=== PATIENT | male | born 1955 | race Caucasian/White ===

== ENCOUNTER 2018-04-02 12:18 | Observation (INO) ==
[2018-04-02] MEDS ORDERED: Aspirin 81 MG TAB.CHEW PO ONE (12:36)
[2018-04-02] MEDS ORDERED: Nitroglycerin 0.4 MG TAB.SUBL SL ONE (12:36)
[2018-04-02 12:44] LABS: Basophils # 0.1 K/mcL (0.0-0.2); Basophils % 0.8 %; Eosinophils # 0.2 K/mcL (0.0-0.6); Hematocrit 50.1 % (37.5-50.1); Hemoglobin 17.7 g/dL (12.9-16.9); Lymphocytes # 2.7 K/mcL (0.6-4.6); Lymphocytes % 23.8 %; Mean Corpuscular HGB Conc 35.3 g/dL (31.6-35.5); Mean Corpuscular Hemoglobin 30.3 pg (28.0-33.3); Mean Corpuscular Volume 85.8 fL (83.0-100.0); Mean Platelet Volume 10.6 fL (9.4-12.4); Monocytes # 0.9 K/mcL (0.0-1.3); Monocytes % 8.1 %; Neutrophils # 7.2 K/mcL (1.6-8.9); Platelet Count 179 K/mcL (140-400); Red Blood Count 5.84 M/mcL (4.19-5.50); Red Cell Distribution Width 11.9 % (11.5-14.5); Segmented Neutrophils % 64.3 %
[2018-04-02 12:54] LABS: Prothrombin Time 11.5 Seconds (9.4-12.1)
[2018-04-02 12:57] LABS: Activated Partial Thrombo Time 25.8 Seconds (26.0-36.0)
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
[2018-04-02 13:09] LABS: Calcium 9.5 mg/dL (8.6-10.3); Potassium 3.6 mEq/L (3.5-5.1); Troponin I 0.03 ng/mL (< 0.04)
[2018-04-02] MEDS ORDERED: 0.9 % Sodium Chloride 1,000 ML IVC ONE (14:02)
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
[2018-04-02] MEDS ORDERED: Naloxone 0.4 MG/ML INJ IVP PRN (15:39)
[2018-04-02] MEDS ORDERED: OLMESARTAN MEDOXOMIL 20 MG PO SCH (16:45)
[2018-04-02] MEDS: amLODIPine 5 MG TABLET PO SCH (17:26)
[2018-04-02 23:06] LABS: Adenovirus Not Detected (Not Detect); Coronavirus 229E Not Detected (Not Detect); Coronavirus HKU1 Not Detected (Not Detect); Coronavirus NL63 Not Detected (Not Detect); Coronavirus OC43 Not Detected (Not Detect); Human Metapneumovirus Not Detected (Not Detect); Human Rhinovirus/Enterovirus Not Detected (Not Detect)
[2018-04-02 23:07] LABS: Bordetella Pertussis Not Detected (Not Detect); Chlamydophila pneumoniae Not Detected (Not Detect); Influenza A Subtype 2009 H1 Not Detected (Not Detect); Influenza A Untypeable Not Detected (Not Detect); Influenza B Not Detected (Not Detect); Mycoplasma pneumoniae Not Detected (Not Detect); Parainfluenza Virus 1 Not Detected (Not Detect); Parainfluenza Virus 2 Not Detected (Not Detect); Parainfluenza Virus 3 Not Detected (Not Detect); Parainfluenza Virus 4 Not Detected (Not Detect); Respiratory Syncytial Virus Not Detected (Not Detect)
[2018-04-03 05:33] LABS: Basophils # 0.1 K/mcL (0.0-0.2); Basophils % 0.8 %; Eosinophils # 0.4 K/mcL (0.0-0.6); Eosinophils % 3.9 %; Hematocrit 43.5 % (37.5-50.1); Immature Granulocytes % 0.7 % (0-4); Lymphocytes # 3.2 K/mcL (0.6-4.6); Lymphocytes % 35.4 %; Mean Corpuscular HGB Conc 34.7 g/dL (31.6-35.5); Mean Corpuscular Hemoglobin 30.2 pg (28.0-33.3); Monocytes # 0.9 K/mcL (0.0-1.3); Monocytes % 9.6 %; Neutrophils # 4.4 K/mcL (1.6-8.9); Platelet Count 141 K/mcL (140-400); Red Cell Distribution Width 11.9 % (11.5-14.5); Segmented Neutrophils % 49.6 %
[2018-04-03 05:34] LABS: Hemoglobin 15.1 g/dL (12.9-16.9)
[2018-04-03 05:48] LABS: Chol/HDL Ratio 4.5 (0-4.9)
[2018-04-03 05:51] LABS: BUN/Creatinine Ratio 15 (6-26); Blood Urea Nitrogen 17 mg/dL (8-23); Carbon Dioxide 26 mEq/L (23-29); Chloride 103 mEq/L (98-107); Glucose 249 mg/dL (70-105); Osmolality,Calculated 296 (280-300); Potassium 3.6 mEq/L (3.5-5.1); Sodium 138 mEq/L (136-145); eGFR For Non-African Americans > 60 (> 60)
[2018-04-03] MEDS ORDERED: Regadenoson 0.4 MG/5 ML SYRINGE IVP ONE (07:39)
[2018-04-03 08:07] LABS: Estimated Average Glucose 177 mg/dl; Hemoglobin A1C 7.8 %
[2018-04-03] MEDS ORDERED: Perflutren Lipid Microsphere 1.3 ML in 0.9 % Sodium Chloride 8.7 ML IVP ONE (09:13)
[2018-04-03] MEDS: Insulin LISPRO 300 UNITS/3 ML VIAL SQ SCH ×3 (09:40→17:30)
[2018-04-03] MEDS: amLODIPine 5 MG TABLET PO SCH (10:12)
--- NOTE | 2018-04-03 11:12 | Cardiology Consult Note ---
<Kyung Flowers - Last Filed: 04/03/18 11:02> Date of Encounter: 04/03/18 Time of Encounter: 11:02 Assessment and Plan (1) Left ventricular ejection fraction less than 40 percent Current Visit: Yes Status: Acute - Echo and stress test consistent with gated LVEF 20-30% - Plan for cardiac catheterization in early-mid afternoon 04/03/18 (2) Left bundle branch block Current Visit: Yes Status: Acute EKG findings - Deep S waves in V1-V2-V3, slightly prolonged QRS at 133, consistent with LBBB. - Plan for cardiac cath afternoon 04/03/18 Discussion w patient/family: The assessment and plan as outlined above was discussed with the patient and/or family members who expressed understanding and agreement. All questions were answered. Thank you for involving us in the care of your patient. Please call with any questions. History of Present Illness Consult date: 04/03/18 Requesting physician: Kel Ram Consult reason: abnormal stress test Chief complaint: diaphoresis History of present illness: Mr. Winston is a 62 year old male with PMH of type 2 diabetes managed medically and remote history of rheumatic fever as a child. He presented to [facility] on 04/02/18 with complaints of diaphoresis after taking his anti-hyperglycemic medications and not eating. He began sweating while in the shower. 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 Workup in the ED revealed negative troponins and an EKG with nonspecific ischemic findings changed from previous studies as well as a LBBB. He was admitted for further cardiac workup and underwent an echocardiogram and stress test which both suggested that his EF was 20-30% with signs of ischemia and possibly an old infarct with para-infarct ischemia, see report for further details. Pt reports no additional symptoms beyond sweating and specifically denies N/V, lightheadedness, syncope, or visual changes. He reports he was deer hunting yesterday and pulled 3 deer out of the scales about a 1/2 mile each, as well as exercising 3x a week. He denies ever seeing a well logger although believes he may have had a stress test in the past, records did not reveal this test happened at this facility. Pt denies other medical issues besides diabetes, only surgery was a sinus surgery as a young man, has never been hospitalized, does not report any recent URI symptoms, and family history is positive for DM in mother and brother as well as unknown cancer in mom, who he reports was a heavy smoker. He follows a normal diet, only checks his sugar about one time per week, and drinks several glasses of unswe etened black tea per day for caffeine consumption. Past Med Surg Social Fam HX - Past Medical History Medical history: diabetes, hyperlipidemia, hypertension Psychiatric history: no psych history - Past Surgical History Surgical History: sinus surgery - Social History Smoking Status: Never smoker Smokeless Tobacco Status: Yes (15 year hx, stopped 8 years ago) Alcohol use: none Drug use: none Occupational status: employed - Family History Mother Living Status: Cause of : lung cancer Hx Family Cancer: Yes (lung cancer) Hx Family Endocrine Disorder: Yes (Diabetes at age 70) Brother Hx Family Endocrine Disorder: Yes (diabetes at age 60) Medications and Allergies Amlodipine Besylate 5 mg PO DAILY 04/02/18 [History] Glimepiride [Amaryl] 4 mg PO DAILY 04/02/18 [History] Metformin HCl 1,500 mg PO DAILY 04/02/18 [History] Olmesartan Medoxomil 20 mg PO DAILY 04/02/18 [History] Allergy/AdvReac Type Severity Reaction Status Date / Time No Known Allergies Allergy Verified 04/02/18 12:27 All Systems Review: The remainder of the systems were reviewed and are negative - Constitutional Constitutional: no chills, no fever(s) - EENT Eyes: no blurred vision, no loss of vision - Cardiovascular Cardiovascular: diaphoresis, no chest pain at rest, no chest pain with exertion, no irregular heart rhythm, no lightheadedness, no palpitations, no syncope - Respiratory Respiratory: no cough, no dyspnea, no wheezing Physical Examination Vital Signs, Last 4 Hours Temp Pulse Resp BP Pulse Ox 04/03/18 10:15 95 04/03/18 09:47 97.8 F 65 16 150/88 95 General: Conversant, No Apparent Distress HEENT: Atraumatic, Normocephaly, Mucus Membranes Moist Neck: No JVD, Normal carotid pulses Cardiac: Reg Rate and Rhythm, Normal S1 and S2, No Murmur Lungs: Normal Breath Sounds, No Wheeze, Rales, Rhonchi Neuro: Alert and responsive, No focal deficits noted Abdomen: Soft, Non-Tender Skin: No rashes noted on visualized skin Musculoskeletal: No Chest Wall Tenderness Extremities: No Clubbing, No Cyanosis, No Edema, Normal Pulses (2+ dorsalis pedis, posterior tibialis, and radial) Results 04/03/18 04:53 04/03/18 04:53 Lab Results 04/02/18 04/02/18 04/02/18 12:36 12:36 12:36 WBC 11.3 H Hgb 17.7 H Hct 50.1 Plt Count 179 INR 1.0 APTT 25.8 L Sodium 140 Potassium 3.6 Chloride 105 Carbon Dioxide 23 BUN 16 Creatinine 1.51 H Glucose 209 H Calcium 9.5 Troponin I 0.03 04/02/18 04/02/18 04/03/18 15:42 21:29 04:53 WBC 8.9 Hgb 15.1 D Hct 43.5 Plt Count 141 INR APTT Sodium Potassium Chloride Carbon Dioxide BUN Creatinine Glucose Calcium Troponin I 0.03 0.03 04/03/18 04:53 WBC Hgb Hct Plt Count INR APTT Sodium 138 Potassium 3.6 Chloride 103 Carbon Dioxide 26 BUN 17 Creatinine 1.12 Glucose 249 H Calcium 9.0 Troponin I - Imaging and Cardiology Chest Xray: report reviewed Stress Test: report reviewed Echo: report reviewed - EKG Interpretation EKG results cardiology: personally reviewed, left bundle branch block, other (Study from 04/02/18 1238 - sinus tachycardia at 104, evidence of LVH with S wave depth in V1 + tallest R wave height in V5-V6 > 35 mm, deep S waves in V1-V2-V3 consistent with LBBB, mildly prolonged QRS at 133, normal VA at 182, QTc 481. ST segment depression in I, aVL. Diffuse ST elevation in II, III, V1, V2, V3, V4. Mild T wave flattening in V6.) Consult Discharge Plan - Plan Referrals: Elizabeth Tena MD [Primary Care Provider] - 04/06/18 11:45 am <Padmini Donaldson - Last Filed: 04/03/18 12:45> Date of Encounter: 04/03/18 - Attending Attestation I examined this patient and my medical decision-making was reviewed with the Resident Physician. I agree with the documented findings, disposition and treatment plan. Mr. Winston presented to the hospital with an episode of diaphoresis. No ECG changes, negative troponins. Denies history of chest pain or decline in functional activities. Denies dyspnea. At bedside, patient is AAOx3, NAD, resting comfortably No cardiac murmur, normal breath sounds, no LE edema, palpable pulses Echo reviewed Stress test reviewed ECG on admission - LBBB, appears old Impression: 1. Abnormal stress test: Images were personally reviewed and in my opinion demonstrate a partially fixed perfusion defect involving the inferior wall suggestive of prior infarct associated with inferior wall ischemia on stress imaging. I discussed this with the patient and . Given findings and newly discovered systolic heart failure, would recommend proceeding with LHC. The R/B/A of the procedure were discussed in detail. Renal function has normalized. Patient expressed understanding of the risks and has agreed to proceed. 2. Newly discovered LV systolic CHF: Echo reviewed demonstrating severely reduced LVEF, chronicity unknown. Fairly euvolemic on exam. Will start BB. ACEI/ARB to be added after LHC. Ultimately will need to follow up as outpatient to discuss AICD if LVEF does not improve. Assessment and Plan Discussion w patient/family: The assessment and plan as outlined above was discussed with the patient and/or family members who expressed understanding and agreement. All questions were answered. Thank you for involving us in the care of your patient. Please call with any questions. History of Present Illness History of present illness: Mr. Winston is a 62 year old male All Systems Review: The remainder of the systems were reviewed and are negative Physical Examination Vital Signs, Last 4 Hours Temp Pulse Resp BP Pulse Ox 04/03/18 11:51 97.9 F 63 16 133/86 97 04/03/18 10:15 95 04/03/18 09:47 97.8 F 65 16 150/88 95 Results 04/03/18 04:53 04/03/18 04:53 Lab Results 04/02/18 04/02/18 04/02/18 12:36 12:36 12:36 WBC 11.3 H Hgb 17.7 H Hct 50.1 Plt Count 179 INR 1.0 APTT 25.8 L Sodium 140 Potassium 3.6 Chloride 105 Carbon Dioxide 23 BUN 16 Creatinine 1.51 H Glucose 209 H Calcium 9.5 Troponin I 0.03 04/02/18 04/02/18 04/03/18 15:42 21:29 04:53 WBC 8.9 Hgb 15.1 D Hct 43.5 Plt Count 141 INR APTT Sodium Potassium Chloride Carbon Dioxide BUN Creatinine Glucose Calcium Troponin I 0.03 0.03 04/03/18 04:53 WBC Hgb Hct Plt Count INR APTT Sodium 138 Potassium 3.6 Chloride 103 Carbon Dioxide 26 BUN 17 Creatinine 1.12 Glucose 249 H Calcium 9.0 Troponin I
--- NOTE | 2018-04-03 11:30 | Pre-Sedation Evaluation ---
Pre-sedation evaluation - Pre-sedation checklist Date of procedure: 04/03/18 Procedure: LHC Recent Vitals: Last Vital Signs Temp 97.8 F 04/03/18 09:47 Pulse 65 04/03/18 09:47 Resp 16 04/03/18 09:47 BP 150/88 04/03/18 09:47 Pulse Ox 95 04/03/18 10:15 ASA Classification *see protocol: CLASS II-Mild systemic disease Cardiac Registry (Cardio Only) - Functional Capacity Functional Capacity: >=4 METS with symptoms - Clincal Frailty Scale Clinical Frailty Scale: Managing Well
[2018-04-03] MEDS ORDERED: ISOVUE-370 200 ML INFUS..BTL ONE (13:34)
[2018-04-03] MEDS ORDERED: Heparin 1,000 UNITS/500 mL 500 ML ONE (13:34)
[2018-04-03] MEDS ORDERED: Nitroglycerin 1,000 MCG/10 ML VIAL IV ONE (13:34)
[2018-04-03] MEDS ORDERED: 0.9 % Sodium Chloride 1,000 ML ONE ×2 (13:34→13:57)
[2018-04-03] MEDS ORDERED: *HR* Heparin 10,000 UNIT/10 ML VIAL ONE (13:34)
--- NOTE | 2018-04-03 13:38 | Internal Med Progress Note ---
Hospitalist Progress Note - Encounter Date of Encounter: 04/03/18 Time of Encounter: 11:30 - Subjective Interval History: Patient was seen and examined at bedside he is resting comfortably in the bed Patient denied any chest pain or shortness of breath - Exam Vitals: Temp Pulse Resp BP Pulse Ox 97.9 F 63 16 133/86 97 04/03/18 11:51 04/03/18 11:51 04/03/18 11:51 04/03/18 11:51 04/03/18 11:51 Exam: Gen: Alert, awake, Oriented to time,place and person Chest: Diminished breath sounds B/L, No wheezing, No crackles, No rales Heart: S1S2+ RRR No murmurs Abd: Soft, NT, BS +, No organomegaly Ext: No edema, pulses are palpable, No calf tenderness Neuro : Benign findings Skin: No rash. - Assessment and Plan (1) Abnormal stress test Current Visit: Yes Status: Acute Assessment and Plan: Pt did have typical angina equivalent SOB / Diaphoresis y/d which resolved now His serial troponin were negative however his stress test came back as abnormal with medium sized perfusion defect in te basal inferior segment Cardiology consulted scheduled for [facility] today since he does have mild ASHLEE with CKD, started him on IVF and Acetylcystiene cont ASA, Statin and BB (2) Diaphoresis Current Visit: Yes Status: Acute (3) Left bundle branch block Current Visit: Yes Status: Acute Assessment and Plan: As above (4) Diabetes Current Visit: Yes Status: Acute Assessment and Plan: Hb A1C 7.8 on ISS (5) HTN (hypertension) Current Visit: Yes Status: Acute Assessment and Plan: Currently stable Continue home amlodipine and ASHLEY inhibitor (6) Acute kidney injury superimposed on CKD Current Visit: Yes Status: Acute Assessment and Plan: ASHLEE with CKD-2 Improved Cr to baseline @ 1.2 today Since pt is going for [facility], will start gentle hydration and Acetylcystiene (7) Leukocytosis Current Visit: Yes Status: Acute Assessment and Plan: reactive (8) Polycythemia Current Visit: Yes Status: Acute Assessment and Plan: Likely related to dehydration and hemoconcentration Improved with IVF - Time Spent with Patient Total time spent is greater than 50% in coordination of care (as documented) at patient's floor/unit and/or counseling patient: Internal Medicine: Result - Labs CBC & Chem 7: 04/03/18 04:53 04/03/18 04:53 Labs: Short CBC 04/03/18 Range/Units 04:53 WBC 8.9 (4.3-11.1) K/mcL Hgb 15.1 D (12.9-16.9) g/dL Hct 43.5 (37.5-50.1) % Plt Count 141 (140-400) K/mcL Neutrophils # 4.4 (1.6-8.9) K/mcL BMP 04/02/18 04/03/18 12:36 04:53 Sodium 140 138 Potassium 3.6 3.6 Chloride 105 103 Carbon Dioxide 23 26 BUN 16 17 Creatinine 1.51 H 1.12 Glucose 209 H 249 H Calcium 9.5 9.0 Cardiac Enzymes 04/02/18 04/02/18 04/02/18 Range/Units 12:36 15:42 21:29 Troponin I 0.03 0.03 0.03 (< 0.04) ng/mL - ABG Interpretation ABG results: PT/INR, D-dimer PT 11.5 Seconds (9.4-12.1) 04/02/18 12:36 - Impressions Impressions Chest X-Ray 04/02/18 12:36 IMPRESSION: No acute findings. D/ / 04/02/2018 13:04:41 Dutch Espinoza MD / Sade Umaña Interpreting Provider: Dutch Espinoza MD Echocardiogram 04/03/18 08:00 Impressions: LVEF 20-25%. Moderately dilated left ventricle. Moderate left ventricular diastolic dysfunction. Normal right ventricular structure and function. Mild mitral regurgitation. Unable to estimate RVSP due to lack of TR jet. Left Ventricular Wall Motion: Rest Echo Findings The apex, apical inferior, mid inferior, basal inferior, apical anterior, basal anterior, basal inferior septal, apical lateral, mid anterior lateral, basal anterior lateral, mid inferior lateral, basal anterior septal and basal inferior lateral patel were hypokinetic. The mid anterior, apical septal, mid inferior septal and mid anterior septal patel were akinetic. Findings: Study Quality * Technically adequate exam. ECG Findings * Normal sinus rhythm. Left Ventricle * LVEF 20-25%. * Moderately dilated left ventricle. * Moderate left ventricular diastolic dysfunction. * There is no LV thrombus. * Definity echo contrast was used. * Mild concentric left ventricular hypertrophy. * Severe global and segmental left ventricular systolic dysfunction. Right Ventricle * Normal right ventricular structure and function. Left Atrium * Normal left atrial size. Right Atrium * Normal right atrial size. Interatrial Septum * No evidence of PFO by color Doppler. Aortic Valve * Trileaflet aortic valve. * Normal aortic valve structure. * No aortic regurgitation. * No aortic stenosis. Mitral Valve * Normal mitral valve structure. * No mitral stenosis. * Mild mitral regurgitation. Tricuspid Valve * Normal tricuspid valve structure. * Unable to estimate RVSP due to lack of TR jet. * Trace tricuspid regurgitation. * No tricuspid stenosis. Pulmonic Valve * Pulmonic valve is not well visualized. Aorta * Normally sized aortic root. Pericardium * The pericardium appears normal. IVC * The IVC is not well evaluated. Consult Discharge Plan - Plan Referrals: Elizabeth Tena MD [Primary Care Provider] - 04/06/18 11:45 am (4) Diabetes Qualifiers: Diabetes mellitus type: type 2 Diabetes mellitus cooker pie filling insulin use: without cooker pie filling use Diabetes mellitus complication status: with unspecified complications Qualified Code(s): E11.8 - Type 2 diabetes mellitus with unspecified complications (5) HTN (hypertension) Qualifiers: Hypertension type: essential hypertension Qualified Code(s): I10 - Essential (primary) hypertension (7) Leukocytosis Qualifiers: Leukocytosis type: unspecified Qualified Code(s): D72.829 - Elevated white blood cell count, unspecified
--- NOTE | 2018-04-03 14:03 | Pre-Sedation Evaluation ---
Pre-sedation evaluation - Pre-sedation checklist Date of procedure: 04/03/18 Procedure: L heart cath Recent Vitals: Last Vital Signs Temp 97.9 F 04/03/18 11:51 Pulse 63 04/03/18 11:51 Resp 16 04/03/18 11:51 BP 133/86 04/03/18 11:51 Pulse Ox 97 04/03/18 11:51 H&P (including ROS) documented in medical record: Yes Previous reaction to sedatives/anesthetics: No Dietary Status: NPO after Midnight Dentition: full dentition ASA Classification *see protocol: CLASS II-Mild systemic disease Cardiac Registry (Cardio Only) - Functional Capacity Functional Capacity: >=4 METS with symptoms - Clincal Frailty Scale Clinical Frailty Scale: Vulnerable
[2018-04-03] MEDS ORDERED: *HR* Midazolam HCl 2 MG/2 ML VIAL ONE (14:18)
[2018-04-03] MEDS ORDERED: *HR* FentaNYL (PF) 100 MCG/2 ML VIAL ONE (14:18)
--- NOTE | 2018-04-03 14:49 | Event Note ---
Date of Encounter: 04/03/18 Time of Encounter: 14:40 - Cardiology Event Note Per Dr. Uriarte, normal coronaries. Discussed with Dr. Donaldson, on asa and BB, will add low dose ACEI. Cardiology signoff, reconsult as needed, follow-up arranged.
--- NOTE | 2018-04-03 15:01 | Invasive Diagnostic Lab Proc ---
Name: Gomez Winston Date of Study: 04/03/2018 Date: 1955 Ht: 71.0in Medical Record#: [id number] Age: 62 Wt: 224.87lb Gender: Male BSA: 2.22 Order #: [id number] BMI: 31.38 Physicians Procedure Physician: Esau Uriarte MD Referring MD: Referring MD: Staff Name Position Time In TaoGus white RN Monitor 02:13 PM Bhargav Garrett RN Ironworker Apprentice 02:13 PM Emily Jane RT (R) Scrub 02:14 PM Indications Indication Abnormal Test - Stress Procedures Performed Procedure L HRT ARTERY/VENTRICLE ANGIO Pre-Procedure Checklist Informed consent is complete signed and on chart. H&P is on chart. ID band is on and ID verified with patient. Patient NPO for procedure The procedure was described for the patient and questions were answered. Blood Pressure: 133/86 ECG is on chart. Rhythm: NSR Plan of Care Patient will tolerate the procedure without complications. Adequate level of comfort will be maintained. Hemodynamics will remain stable Patient will recover from procedure without complications. Respiratory function will be maintained. Cardiac rhythm will remain stable. Patient temperature will be maintained. Patient and/or family have verbalized understanding of the procedure. Patient Education Chief Complaint/Reason for Test: Cardiac Cath Developmental Category: Adult (18-64 years) Developmentally Appropriate for Age: Yes Learning Barriers: None Education Needs: Procedure Education Method: Verbal Information Taught: Cardiac Cath Educational Evaluation: Able to repeat information Intravenous Access Time IV Size Location DC'd Fluid/Drip Rate Units RN 20g 1 /" Patent On Arrival Lt Antecubital 0.9NaCl Bhargav Garrett RN Allergies No Known Allergies Vital Signs Time BP (mmHg) HR (bpm) O2 Sat. RR (bpm) LOC 133 / 86 97 % 16 02:18 PM / % 5 = Fully awake and oriented or at pre-proc level 02:18 PM / % 4 = Oriented but drowsy 02:21 PM 135 / 96 64 99 % 41 02:26 PM 142 / 87 68 96 % 17 02:31 PM 141 / 83 54 97 % 19 02:36 PM 142 / 95 66 96 % 27 02:41 PM 148 / 98 60 97 % 23 02:46 PM 151 / 95 70 98 % 13 Procedural Medications Time Medication Dose Units Method Given By 02:17 PM Oxygen 2 L/min nasal cannula Bhargav Garrett RN 02:21 PM Versed 1 mg Intravenous Bhargav Garrett RN 02:21 PM Fentanyl 50 mcg Intravenous Bhargav Garrett RN 02:30 PM Lidocaine 2% 10 ml Subcutaneous Esau Uriarte MD ASA Classification: CLASS II- Mild systemic disease (i.e. well-controlled diabetes, hypertension, asthma, cigarette smoking) Paolo Score Preprocedure Postprocedure Activity 2- Moves 4 extremities sustained head lift Activity 2- Moves 4 extremities sustained head lift Circulation 2- SBP +/= 20 points of pre-anesthetic level Circulation 2- SBP +/= 20 points of pre-anesthetic level Consciousness 2- Awake and alert oriented x 3 Consciousness 2- Awake and alert oriented x 3 O2 Saturation 2- Able to maintain O2 satruation of 92% on room air O2 Saturation 2- Able to maintain O2 satruation of 92% on room air Respiratory 2- Able to deep breathe and cough well Respiratory 2- Able to deep breathe and cough well Total Score 10 Total Score 10 Contrast Agent: Isovue Diagnostic Contrast: 41 ml Total Contrast: 41 ml Fluoro Dose: 4539 mGy Procedure Log Time Note Enter By 02:13 PM Pt arrived to phlebotomist medical lab assistant 2 at 14:13 [facility] 02:13 PM Gus Burger RN Position: Monitor Time in: 14:13 [facility] 02:14 PM Bhargav Garrett RN Position: Ironworker Apprentice [facility] Emily Jane RT (R) Position: Scrub Time in: 14:14 [facility] 02:15 PM Patient charges- Angio tray pack, Navilyst 3mm J, Pulse Oximetry and ACIST tubing and transducer [facility] 02:16 PM Physician arrived 14:16 [facility] 02:17 PM ASA Class CLASS II- Mild systemic disease (i.e. well-controlled diabetes, hypertension, asthma, cigarette smoking) [facility] :17 PM Meet and greet completed [facility] :17 PM Sign in performed according to hospital policy. Informed consent was obtained. [facility] 02:17 PM Procedure start 14:17 [facility] :17 PM Case Delayed no, [facility] Hair removed from procedure site in procedure lab using clippers. Bilateral groin prepped with Chloraprep by Emily Jane (R), then patient was draped. Skin intact. jcallihan 02:18 PM Time: 14:17 Oxygen on at 2 L/min per nasal cannula by Bhargav Garrett RN jcdonell :18 PM Time: 14:18 Patient comfortable and pain free: Yes jcallihan :18 PM Time: 14:18LOC: 5 = Fully awake and oriented or at pre-proc level jcallihan 02:20 PM CathStat 02:20 PM Vitals capture started with the following parameters, Patient=Adult, Interval=5 min, Initial Mvqyljys=654 mmHg, Deflation Rate=5 mmHg, Cuff placed on Right Arm 02: PM Time: 14: Versed 1 mg Intravenous Given by Bhargav Garrett RN : PM Time: 14:21 Fentanyl 50 mcg Intravenous Given by Bhargav Garrett RN donell 02: PM HR=64 bpm, TOAH=762/96 mmhg, SpO2=99.0 %, Resp=41 B/min, Comment=nsr 02: PM HR=68 bpm, CALF=588/87 mmhg, SpO2=96.0 %, Resp=17 B/min, EtCO2=35 mmHg, Comment=nsr 02:29 PM Time out was performed according to hospital policy. Conscious sedation and anesthesia was achieved (see medication log with in this report above) jcallihan 02:30 PM Time: 14:30 10 ml Lidocaine 2% to right groin Subcutaneous Given by Esau Uriarte MD [facility] 02:31 PM HR=54 bpm, JXPM=082/83 mmhg, SpO2=97.0 %, Resp=19 B/min, EtCO2=36 mmHg, Comment=sb 02:32 PM Micro-Introducer Kit utilized for sheath placement jcallihan 02:32 PM right femoral artery injected with 2 ml contrast. Images obtained. jcallihan :32 PM Access obtained by percutaneous puncture. 6Fr 10cm Terumo [place] sheath placed in right Femoral artery. [id number] jcallihan 02:32 PM 5Fr FR 4 catheter inserted over the wire DNC jcallihcindy 02:33 PM Time: 14:18LOC: 4 = Oriented but drowsy jcallihan 02:33 PM Time: 14:18 Patient comfortable and pain free: Yes jcallihan 02:33 PM Recorded Pressure: Ao, HR=62, Condition=Condition 1 (Aorta) Ao 127/83/105 02:34 PM RCA angiography performed in multiple views. jcallihan 02:34 PM Catheter removed jcallihan 02:34 PM 5Fr FL 4 catheter inserted over the wire DN jcallihan 02:36 PM HR=66 bpm, JGDM=428/95 mmhg, SpO2=96.0 %, Resp=27 B/min, Comment=sb 02:36 PM LCA angiography performed in multiple views. jcallihan 02:37 PM Coronary Dominance: Left jcallihan 02:37 PM Catheter removed jcallihan 02:37 PM 5Fr Pigtail catheter inserted over the wire [facility] jcallihan 02:38 PM Catheter crossed the aortic valve and was selectively placed in the left ventricle. Pressures recorded on pullback for left heart catheterization. jcallihan 02:38 PM Recorded Pressure: LV, HR=72, Condition=Condition 1 (Left Ventricle) LV 137/15/21 02:38 PM Recorded Pressure: LV, Ao, HR=73, Condition=Condition 1 (Left Ventricle) LV 134/14/20, (Aorta) Ao 135/89/110 02:39 PM Catheter removed jcallihan 02:39 PM Wire removed jcallihan 02:40 PM Procedure completed at 14:40 04/03/2018 jcallihan 02:40 PM Did you address ARNULFO flow and Dominance? Yes jcallihan 02:41 PM Sign out completed: Radiation Dose 368 mGy, 4539 cGy/cm2 Fluoro Time: 1.5 Isovue 370 - 200ml contrast 41 ml given by Esau Uriarte MD. Complications: None. The patient was discharged out of the cathead operator in stable condition. Cardiac Rehab Consult needed: NoConfirmed administered medications: Yes jcallihan 02:41 PM HR=60 bpm, ENJM=480/98 mmhg, SpO2=97.0 %, Resp=23 B/min, Comment=nsr 02:41 PM Isovue 370 - 200ml,1 Bottle(s) used. jcallihan 02:41 PM Arterial sheath pulled, Angio-seal closure device used and was Successful [id number] S/N. jcallihan 02:42 PM Estimated Blood Loss: minimal jcallihan 02:42 PM Post ECG NSR jcallihan 02:42 PM Post Blood Pressure 148/98 jcallihan 02:43 PM 14:43 Post Pulses Bilateral DP & PT 2+ jcallihan 02:43 PM Information taught Cardiac Cath and Angioseal jcallihan 02:43 PM Education needs Procedure, Plan of Care, and Responsibilities of Patient in Care jcallihan 02:43 PM Learning barriers :None jcallihan 02:43 PM Education Methods Verbal jcallihan 02:43 PM Education evaluation Able to repeat information jcallihan 02:43 PM Site status No bleeding/hematoma - Rt Groin as reported by Emily Jane RT (R) at 14:43 jcallihan 02:43 PM Opsite applied jcallihan 02:43 PM Report given to 3B RN Pt taken to Holding room Room #33. 14:43 jcallihan 02:43 PM Plavix, Effient or Brilinta given No jcallihan 02:43 PM Delay to floor No jcallihan 02:44 PM Family placed in consult room. jcallihan 02:44 PM Complications: None jcallihan 02:44 PM Patient out of room: 14:44 jcallihan 02:45 PM Lesion found in Mid LAD. Pre Stenosis: 25 Pre ARNULFO Flow: jcallihan 02:45 PM Mid/Distal Left Anterior Descending Coronary Artery and diagonal branches with 25% stenosis. If graft is supplying this area, 0 % stenosis jcallihan 02:46 PM HR=70 bpm, OWDU=344/95 mmhg, SpO2=98.0 %, Resp=13 B/min Complications Complication None None Hemodynamics Pressures Site Systolic/A Wave Diastolic/V Wave Mean AO 127 83 105 LV 137 15 21 LV 134 14 20 AO 135 89 110 Post Procedure Information Blood Pressure: 148/98 mmHg Rhythm: NSR Post procedural instructions were given Closure Device Time Device Success/Fail 04/03/2018 2:40:00 PM Angio-Seal VIP Successful Site Checks Time Location Status Staff Sheath In? Note 02:43 PM Rt Groin No bleeding/hematoma Emily Jane RT (R) Pulses Time Site Pre-Procedure Post-Procedure Note Bilateral DP & PT 2+ Bilateral radial 2+ 2:43:00 PM Bilateral DP & PT 2+ Updated by Gus Burger RN on 04/03/2018 2:52:53 PM electronically signed on 04/03/2018 2:53:44 PM with status of Final
--- NOTE | 2018-04-03 16:50 | Electrocardiograph Report ---
[address] [address] Test Date: 2018-04-02 Pat Name: Gomez Winston Department: EXAM17 Room: 3B33 Gender: M Metal Fabricator Welder: : 1955 Requested By: Roberto Arenas Order Number: [id number] Reading MD: Padmini Donaldson Measurements Intervals [place] Rate: 104 P: 21 MN: 182 QRS: -48 QRSD: 133 T: 112 QT: 365 QTc: 481 Interpretive Statements Sinus tachycardia Left bundle branch block Baseline wander Electronically Signed On 04-03-2018 16:49:37 EST by Padmini Donaldson
--- NOTE | 2018-04-03 16:51 | Electrocardiograph Report ---
[place] [address] Test Date: 2018-04-02 Pat Name: Gomez Winston Department: EXAM17 Room: 3B33 Gender: M Furniture Sales Associate: : 1955 Requested By: Kel Ram Order Number: [id number] Reading MD: Padmini Donaldson Measurements Intervals [place] Rate: 94 P: 41 WI: 191 QRS: -50 QRSD: 135 T: 119 QT: 381 QTc: 477 Interpretive Statements Sinus rhythm Ventricular premature complex Left bundle branch block Electronically Signed On 04-03-2018 16:49:48 EST by Padmini Donaldson
[2018-04-03] MEDS: *HR* Acetylcysteine 20% 600 MG/3 ML ORAL SYRINGE PO SCH ×3 (17:26→21:48)
[2018-04-04 07:25] VITALS: BP 135/90
[2018-04-04] MEDS: Insulin LISPRO 300 UNITS/3 ML VIAL SQ SCH (07:44)
[2018-04-04] MEDS ORDERED: Aspirin Enteric Coated 81 MG Tablet PO SCH (09:00)
[2018-04-04] MEDS ORDERED: Metoprolol XL (24 HR) Succ 25 MG TAB.ER.24H PO SCH (09:00)
[2018-04-04] MEDS: *HR* Acetylcysteine 20% 600 MG/3 ML ORAL SYRINGE PO SCH (09:21)
[2018-04-04 09:41] LABS: BUN/Creatinine Ratio 16 (6-26); Blood Urea Nitrogen 17 mg/dL (8-23); Calcium 9.2 mg/dL (8.6-10.3); Carbon Dioxide 26 mEq/L (23-29); Chloride 102 mEq/L (98-107); Glucose 242 mg/dL (70-105); Osmolality,Calculated 292 (280-300); Sodium 136 mEq/L (136-145); eGFR For Non-African Americans > 60 (> 60)
--- NOTE | 2018-04-04 09:46 | Discharge Summary ---
- NOTES TO OUTPATIENT PROVIDER Notes to Outpatient Provider: f/u with PCP in one week. f/u with Cardiology in 1 week. Please stop taking Norvasc 5mg. Continue taking Benicar / Olmesartan. Also start taking Metoprolol xl 25mg, ASA 81mg and Lipitro 20mg HS. Please do not go back to work until you see your auto glass installer as an out pt. Also please go for out pt sleep study Orders not resulted at time of discharge: Pending orders 04/02/18 15:36 NM placido perf SPECT multi [NM] Routine 04/04/18 08:56 BMP [Basic Metabolic Panel] Stat Date of Encounter: 04/04/18 Time of Encounter: 09:39 - Discharge Diagnosis (1) Abnormal stress test Priority: Primary Status: Acute (2) Diaphoresis Priority: Primary Status: Acute (3) Non-ischemic cardiomyopathy Priority: Secondary Status: Acute (4) Acute systolic heart failure Priority: Secondary Status: Acute (5) Left bundle branch block Priority: Secondary Status: Acute (6) Diabetes Priority: Secondary Status: Acute Qualifiers: Diabetes mellitus type: type 2 Diabetes mellitus custodial insulin use: without rn long term care use Diabetes mellitus complication status: with unspecified complications Qualified Code(s): E11.8 - Type 2 diabetes mellitus with unspecified complications (7) HTN (hypertension) Priority: Secondary Status: Acute Qualifiers: Hypertension type: essential hypertension Qualified Code(s): I10 - Essential (primary) hypertension (8) Acute kidney injury superimposed on CKD Priority: Secondary Status: Acute (9) Leukocytosis Priority: Secondary Status: Acute Qualifiers: Leukocytosis type: unspecified Qualified Code(s): D72.829 - Elevated white blood cell count, unspecified (10) Polycythemia Priority: Secondary Status: Acute Hospital course: Mr. Winston is a 62 year old male with past medical history of diabetes and hypertension who came to ER with sudden onset of diaphoresis. Patient was hunting and had to drag 3 deers prior to this. Patient's first troponin was negative. Patient was admitted in the hospital placed them on survey interviewer. His serial troponin skin back is negative. His EKG did not show any ischemic c hanges . His echocardiogram showed EF 20 to 25% and moderate left ventricular diastolic dysfunction. His stress test came back as a normal with medium sized perfusion defect in te basal inferior segment. Patient was evaluated by auto glass installer and it did left heart catheterization which came back as mild one vessel coronary artery disease. He does have 25% stenosis in the mid LAD. At this point auto glass installer recommended aggressive risk factor modification and follow with cardiology as an outpatient. So patient was placed on aspirin, statin, beta jack and ARB. 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 Also recommended him to go for out patient sleep study - Time Spent with Patient Total time spent providing and/or coordinating discharge services: - Discharge Medications Prescriptions: Aspirin Enteric Coated [Aspirin EC] 81 mg PO DAILY #30 tablet. Atorvastatin Calcium [Lipitor] 20 mg PO HS #30 tablet Metoprolol Succinate [Toprol Xl] 25 mg PO DAILY #30 tab.er.24h Home Medications: Glimepiride [Amaryl] 4 mg PO DAILY 04/02/18 [History] Metformin HCl 1,500 mg PO DAILY 04/02/18 [History] Olmesartan Medoxomil 20 mg PO DAILY 04/02/18 [History] Aspirin Enteric Coated [Aspirin EC] 81 mg PO DAILY #30 tablet. 04/04/18 [Rx] Atorvastatin Calcium [Lipitor] 20 mg PO HS #30 tablet 04/04/18 [Rx] Metoprolol Succinate [Toprol Xl] 25 mg PO DAILY #30 tab.er.24h 04/04/18 [Rx] Allergies/Adverse Reactions: Allergy/AdvReac Type Severity Reaction Status Date / Time No Known Allergies Allergy Verified 04/02/18 12:27 Date of admission: 04/02/18 14:24 Primary care physician: Elizabeth Tena MD Consults: 04/03/18 09:16 Consult to Cardiology [CONS] Routine Comment: abnormal stress test Consulting Provider: Cardiology Dennise Reason for Consult: Abnormal stress test Time Notified: 09:18 Call Completed: Yes - Constitutional Vitals: Temp Pulse Resp BP Pulse Ox 98.1 F 67 16 135/90 95 04/04/18 07:21 04/04/18 07:21 04/04/18 07:21 04/04/18 07:21 04/04/18 07:51 General appearance: Present: cooperative, A&O X 3, no acute distress, answers questions appropriately Exam: Gen: Alert, awake, Oriented to time,place and person Chest: Diminished breath sounds B/L, No wheezing, No crackles, No rales Heart: S1S2+ RRR No murmurs Abd: Soft, NT, BS +, No organomegaly Ext: No edema, pulses are palpable, No calf tenderness Neuro : Benign findings Skin: No rash. - Patient Status Disposition: Home, Self-Care Condition: Good Overall status at discharge: patient is back to baseline - Discharge Instructions Follow Up With: Elizabeth Tena MD [Primary Care Provider] - 04/06/18 11:45 am Juan Ramon Adams DO [Partnered Physician] - - Diet and Activity Activity: increase activity as tolerated Diet: low salt diet
== END 2018-04-04 10:28 | disposition home or self-care (01) ==
LOC: 3BNU 12:18 → EMEROOARM 12:18 → SUATTDRO 14:24 → 3BNU 14:59
PROVIDERS: ADMIT General Practice; ATTEND Family Medicine

== ENCOUNTER 2021-10-27 14:36 | Inpatient (IN) ==
[2021-10-27] MEDS ORDERED: Amiodarone Premix 150 MG/100 ML BAG IVPB ONE (14:45)
[2021-10-27] MEDS ORDERED: *HR* Midazolam HCl 5 MG/5 ML VIAL IVP ONE ×2 (14:48→14:49)
[2021-10-27 14:53] LABS: Basophils # 0.1 K/mcL (0.0-0.2); Basophils % 0.6 %; Eosinophils # 0.7 K/mcL (0.0-0.6); Eosinophils % 4.2 %; Hematocrit 42.4 % (37.5-50.1); Hemoglobin 14.8 g/dL (12.9-16.9); Immature Granulocytes % 2.3 % (0-4); Lymphocytes # 2.4 K/mcL (0.6-4.6); Lymphocytes % 14.6 %; Mean Corpuscular HGB Conc 34.9 g/dL (31.6-35.5); Mean Corpuscular Hemoglobin 31.4 pg (28.0-33.3); Monocytes # 0.9 K/mcL (0.0-1.3); Monocytes % 5.8 %; Neutrophils # 11.7 K/mcL (1.6-8.9); Platelet Count 246 K/mcL (140-400); Red Blood Count 4.71 M/mcL (4.19-5.50); Red Cell Distribution Width 14.3 % (11.5-14.5); Segmented Neutrophils % 72.5 %; White Blood Count 16.1 K/mcL (4.3-11.1)
[2021-10-27 15:04] LABS: Activated Partial Thrombo Time 25.7 Seconds (26.0-36.0)
[2021-10-27] MEDS ORDERED: 0.9 % Sodium Chloride 500 ML ONE (15:12)
[2021-10-27] MEDS ORDERED: 0.9 % Sodium Chloride 500 ML IVC ONE (15:15)
[2021-10-27 15:16] LABS: Alanine Aminotransferase 10 Units/L (7-52); Albumin 3.9 g/dL (3.5-5.7); Albumin/Globulin Ratio 1.4 (1.1-2.2); Alkaline Phosphatase 34 Units/L (34-104); Aspartate Amino Transferase 11 Units/L (13-39); BUN/Creatinine Ratio 14 (6-26); Bilirubin,Direct 0.1 mg/dL (0.0-0.2); Bilirubin,Indirect 0.4 mg/dL (0.0-1.0); Bilirubin,Total 0.5 mg/dL (0.3-1.0); Blood Urea Nitrogen 61 mg/dL (8-23); Calcium 8.6 mg/dL (8.6-10.3); Carbon Dioxide 16 mEq/L (23-29); Chloride 104 mEq/L (98-107); Globulin 2.7 g/dL (2.4-3.5); Glucose 175 mg/dL (70-105); Magnesium 1.5 mg/dL (1.6-2.6); Osmolality,Calculated 304 (280-300); Potassium 4.8 mEq/L (3.5-5.1); Sodium 136 mEq/L (136-145); Total Protein 6.6 g/dL (6.4-8.9); Troponin I < 0.03 ng/mL (< 0.04); eGFR For African Americans 16 (> 60); eGFR For Non-African Americans 13 (> 60)
[2021-10-27 15:29] LABS: Thyroid Stimulating Hormone 2.024 mcIU/mL (0.340-5.600)
[2021-10-27] MEDS ORDERED: 0.9 % Sodium Chloride 1,000 ML IV ONE (15:41)
[2021-10-27 15:49] LABS: Creatine Kinase 57 Units/L (30-223)
[2021-10-27 16:09] LABS: INR 1.1; Prothrombin Time 12.3 Seconds (9.4-12.1)
[2021-10-27 17:37] LABS: Amphetamine Screen,Urine Negative ng/mL (Cutoff=1000); Barbiturate Screen,Urine Negative ng/mL (Cutoff=200); Benzodiazepines Screen,Urine Positive ng/mL (Cutoff=200); Cannabinoid Screen,Urine Negative ng/mL (Cutoff = 50); Cocaine Screen,Urine Negative ng/mL (Cutoff= 300); Opiate Screen,Urine Negative ng/mL (Cutoff=300); Phencyclidine Screen,Urine Negative ng/mL (Cutoff=25)
[2021-10-27] MEDS ORDERED: Naloxone 0.4 MG/ML INJ IVP PRN (18:03)
[2021-10-27] MEDS ORDERED: Dextrose Gel 15 GM/37.5 ML TUBE PO PRN ×2 (18:05)
[2021-10-27] MEDS ORDERED: D5% in Water 1,000 ML IVC PRN (18:05)
[2021-10-27] MEDS: Ringers Solution, Lactated 1,000 ML IVC SCH (18:58)
[2021-10-27] MEDS: *HR* Heparin 5,000 UNIT/ML VIAL SQ SCH (22:11)
[2021-10-27 22:36] LABS: Calcium 8.4 mg/dL (8.6-10.3); Magnesium 2.3 mg/dL (1.6-2.6); Potassium 4.3 mEq/L (3.5-5.1)
[2021-10-28] MEDS: Ringers Solution, Lactated 1,000 ML IVC SCH (02:36)
[2021-10-28 04:22] LABS: Hematocrit 36.7 % (37.5-50.1); Mean Corpuscular HGB Conc 35.1 g/dL (31.6-35.5); Mean Corpuscular Hemoglobin 32.2 pg (28.0-33.3); Mean Corpuscular Volume 91.5 fL (83.0-100.0); Mean Platelet Volume 10.9 fL (9.4-12.4); Platelet Count 178 K/mcL (140-400); Red Blood Count 4.01 M/mcL (4.19-5.50); Red Cell Distribution Width 14.5 % (11.5-14.5); White Blood Count 13.4 K/mcL (4.3-11.1)
[2021-10-28 04:23] LABS: Hemoglobin 12.9 g/dL (12.9-16.9)
[2021-10-28 04:46] LABS: Calcium 8.1 mg/dL (8.6-10.3); Magnesium 2.1 mg/dL (1.6-2.6); Potassium 4.1 mEq/L (3.5-5.1)
[2021-10-28] MEDS: *HR* Heparin 5,000 UNIT/ML VIAL SQ SCH ×3 (05:04→22:08)
[2021-10-28] MEDS: *HR* Dextrose 50 % in Water (Syg) 50 ML SYRINGE IVP PRN ×3 (08:47→09:47)
[2021-10-28] MEDS: Insulin LISPRO 300 UNITS/3 ML VIAL SUBQ SCH ×3 (08:48→16:37)
[2021-10-28] MEDS ORDERED: Aspirin Enteric Coated 81 MG Tablet PO SCH (09:00)
[2021-10-28] MEDS: D5% in Lactated Ringers 1,000 ML IVC SCH ×2 (11:26→22:08)
[2021-10-29] MEDS ORDERED: Dextrose Gel 15 GM/37.5 ML TUBE PO PRN ×2 (03:08)
[2021-10-29] MEDS ORDERED: Naloxone 0.4 MG/ML INJ IVP PRN (03:08)
[2021-10-29] MEDS ORDERED: D5% in Water 1,000 ML IVC PRN (03:08)
[2021-10-29] MEDS ORDERED: *HR* Dextrose 50 % in Water (Syg) 50 ML SYRINGE IVP PRN (03:08)
[2021-10-29] MEDS: D5% in Lactated Ringers 1,000 ML IVC SCH ×2 (04:04→11:35)
[2021-10-29 04:49] LABS: Calcium 8.1 mg/dL (8.6-10.3); Magnesium 1.5 mg/dL (1.6-2.6)
[2021-10-29] MEDS: *HR* Heparin 5,000 UNIT/ML VIAL SQ SCH ×2 (05:43→15:30)
[2021-10-29] MEDS: Ringers Solution, Lactated 1,000 ML IVC SCH (08:04)
[2021-10-29] MEDS: Insulin LISPRO 300 UNITS/3 ML VIAL SUBQ SCH ×3 (08:41→17:15)
[2021-10-29] MEDS ORDERED: Perflutren Lipid Microsphere 1.3 ML in 0.9 % Sodium Chloride 8.7 ML IVP PRN (08:47)
[2021-10-29] MEDS ORDERED: Aspirin Enteric Coated 81 MG Tablet PO SCH (09:00)
[2021-10-29] MEDS ORDERED: Magnesium Oxide 400 MG TABLET PO SCH (14:00)
[2021-10-29 14:45] VITALS: BP 118/73; PULSE 72; TEMP 97.6; O2SAT 96
== END 2021-10-29 18:13 | disposition home or self-care (01) | DRG 309 ==
LOC: EMEROOARM 14:36 → ICNU 14:36 → SUATTDRO 18:27 → ICNU 18:29 → 3BNU 10-28 21:44
PROVIDERS: ADMIT Internal Medicine; ATTEND Family Medicine